=== PATIENT | female | born 2005 | race Caucasian/White ===

== ENCOUNTER 2024-09-11 12:04 | Outpatient (CLI) | payer BC, SELFPAY | END 2024-09-11 12:05 | disposition home or self-care (01) | PROVIDERS: Visit Provider Physician Assistant Medical | DX: E10.9 Type 1 diabetes mellitus without complications (principal); E84.9 Cystic fibrosis, unspecified; F32.A Depression, unspecified; F41.9 Anxiety disorder, unspecified | CPT/HCPCS: 80053; 80061; 82043; 82306; 82570; 84443 ==